=== PATIENT | male | born 1950 ===

== ENCOUNTER 2021-03-16 18:46 | Emergency (ER) | payer SELFPAY ==
--- NOTE | 2021-03-16 19:27 | EDM.PDOC ---
ED HPI GENERAL MEDICAL PROBLEM - General Chief Complaint: Drug or Alcohol Abuse Stated Complaint: MEDICAL [facility] Time Seen by Provider: 03/16/21 19:10 Source of Information: Reports: EMS. Denies: Patient, Old Records, RN History Limitations: Reports: Other (patient is too intoxicated to provide history, has never been here before. No family here. ) - History of Present Illness INITIAL COMMENTS - FREE TEXT/NARRATIVE: 71 yo intoxicated male here via EMS after he was unable to stand. Is not from here and has never been to our ER before. Patient denies pain. He says he drinks alcohol every day. Is unable to provide any useful information. 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 [Unable to Verify Home Med List] 03/16/21 [History] Social & Family History - Tobacco Use Tobacco Use Status *Q: Unknown Ever Used Tobacco ED ROS GENERAL - Review of Systems Review Of Systems: Unable To Obtain Reason Not Obtained: Too intoxicated - Physical Exam Exam: See Below Exam Limited By: No Limitations General Appearance: Alert, WD/WN, No Apparent Distress, Other (appears intoxicated) Eye Exam: Bilateral Eye: Normal Inspection, PERRL Ears: Normal External Exam, Normal Canal, Hearing Grossly Normal Nose: No: No Blood (dried blood at nares) Throat/Mouth: Normal Lips, Normal Oropharynx, Normal Voice, No 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, 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.) Head Exam: Atraumatic, Normocephalic Neck: Normal Inspection Respiratory/Chest: No Respiratory Distress, Lungs Clear, Normal Breath Sounds, No Accessory Muscle Use Cardiovascular: Regular Rate, Rhythm, No Edema, Tachycardia GI/Abdominal: Normal Bowel Sounds, Soft, Non-Tender, No Distention Extremities: Normal Inspection Psychiatric: Normal Affect, Normal Mood Skin Exam: Warm, Dry, Intact, Normal Color, No Rash Course - Vital Signs Last Recorded V/S: Last Vital Signs Temp 36.0 C L 03/16/21 19:06 Pulse 100 03/16/21 20:31 Resp 16 03/16/21 19:06 BP 146/84 H 03/16/21 20:31 Pulse Ox 95 03/16/21 19:06 - Orders/Labs/Meds Orders: Active Orders 24 hr Category Date Time Status MVI, Adult with Vitamin K [Infuvite Adult] 10 ml Med 03/16/21 19:30 Active Thiamine [Vitamin B-1] 100 mg Folic Acid 1 mg Magnesium Sulfate [Magnesium Sulfate 50%] 3 gm Sodium Chloride 0.9% [Normal Saline] 1,000 ml IV ASDIRECTED Medication Orders Multivitamins/Minerals 10 ml/Thiamine HCl 100 mg/ Folic Acid 1 mg/ Magnesium Sulfate 3 gm/ Sodium Chloride 1,017.2 mls @ 500 mls/hr IV ASDIRECTED JOANN Last Admin: 03/16/21 19:41 Dose: 500 mls/hr Documented by: LANCE Labs: Laboratory Tests 03/16/21 03/16/21 Range/Units 18:57 19:20 Sodium 148 (140-148) mmol/L Potassium 3.5 L (3.6-5.2) mmol/L Chloride 107 (100-108) mmol/L Carbon Dioxide 24 (21-32) mmol/L Anion Gap 16.9 H (5.0-14.0) mmol/L BUN 17 (7-18) mg/dL Creatinine 1.4 H (0.8-1.3) mg/dL Est Cr Clr Drug Dosing 44.31 mL/min Estimated GFR (MDRD) 50 L (>60) Glucose 91 (74-106) mg/dL Calcium 8.0 L (8.5-10.1) mg/dL Ethyl Alcohol 389 mg/dL Meds: Medications Generic Name Dose Route Start Last Admin Trade Name Freq PRN Reason Stop Dose Admin Multivitamins/Minerals 10 ml/ 1,017.2 mls @ 500 mls/hr 03/16/21 19:30 03/16/21 19:41 Thiamine HCl 100 mg/ Folic IV 500 mls/hr Acid 1 mg/ Magnesium Sulfate 3 ASDIRECTED JOANN Administration gm/ Sodium Chloride - Re-Assessments/Exams Free Text/Narrative Re-Assessment/Exam: 03/16/21 21:15 Got most of his Banana bag in, pulled his IV out for the 2nd time. Will not restart it. Departure - Departure Time of Disposition: 23:04 Disposition: Home, Self-Care 01 Condition: Fair Clinical Impression: Alcohol intoxication Qualifiers: Complication of substance-induced condition: uncomplicated Qualified Code(s): F10.920 - Alcohol use, unspecified with intoxication, uncomplicated - Discharge Information *PRESCRIPTION DRUG MONITORING PROGRAM REVIEWED*: Not Applicable *COPY OF PRESCRIPTION DRUG MONITORING REPORT IN PATIENT TARYN: Not Applicable Instructions: Alcohol Use Disorder, Alcohol Intoxication, [id number] Referrals: PCP,None [Primary Care Provider] - Forms: ED Department Discharge Additional Instructions: No drinking. Someone should stay with your tonight. We strongly recommend you get help for your drinking problem. Sepsis Event Note (ED) - Evaluation Sepsis Screening Result: No Definite Risk - Focused Exam Vital Signs: Vital Signs Temp Pulse Resp BP Pulse Ox 03/16/21 20:31 100 146/84 H 03/16/21 19:06 36.0 C L 106 H 16 93/69 95 03/16/21 18:49 36.0 C L 106 H 16 93/69 95 - My Orders Last 24 Hours: My Active Orders 03/16/21 19:30 MVI, Adult with Vitamin K [Infuvite Adult] 10 ml Thiamine [Vitamin B-1] 100 mg Folic Acid 1 mg Magnesium Sulfate [Magnesium Sulfate 50%] 3 gm Sodium Chloride 0.9% [Normal Saline] 1,000 ml IV ASDIRECTED - Assessment/Plan Last 24 Hours: My Active Orders 03/16/21 19:30 MVI, Adult with Vitamin K [Infuvite Adult] 10 ml Thiamine [Vitamin B-1] 100 mg Folic Acid 1 mg Magnesium Sulfate [Magnesium Sulfate 50%] 3 gm Sodium Chloride 0.9% [Normal Saline] 1,000 ml IV ASDIRECTED
[2021-03-16] MEDS ORDERED: MVI, Adult with Vitamin K 10 ML, Thiamine 100 MG, Folic Acid 1 MG, Magnesium Sulfate 3 ... IV SCH ×5 (19:30)
== END 2021-03-16 23:13 | disposition home or self-care (01) ==
LOC: JP.ED 18:46
DX: F10.120 Alcohol abuse with intoxication, uncomplicated (principal); Y90.8 Blood alcohol level of 240 mg/100 ml or more
CPT/HCPCS: 36415; 80048; 80307; 96365; 96366; 99284; J3411; J3475; J7030; J3490